=== PATIENT | male | born 1955 | race Caucasian/White ===

== ENCOUNTER → 2019-08-05 | Outpatient (CLI) | payer OTHER ==
[~2019-08-05] MED LIST: ASPIRIN325 PO; CELEBREX PO; CO Q-10100 MG PO; FISH OIL 1,0001 EAC5 PO; KEFLEX500 MG PO; LIPITOR80 MG PO; LORTAB 5 MG/5001 TA1 PO; MOBIC7.5 M1 PO; OMEPRAZOLE PO; SYNTHROID125 MCG PO; THERA-M CAPLET1 EACH PO; TUMS PO; ZANTAC PO; ZYRTEC10 M2 PO; [UNRECOGNIZED DRUG - OTHER] PO
== END ==
LOC: CAT 14:16
DX: Z13.6 Encounter for screening for cardiovascular disorders (principal); E78.00 Pure hypercholesterolemia, unspecified; I25.10 Atherosclerotic heart disease of native coronary artery without angina pectoris